=== PATIENT | female | born 1995 | race African-American/Black ===

== ENCOUNTER 2023-11-28 17:05 | Emergency (ER) | payer SELFPAY ==
[~2023-11-28] VITALS: Ht 149.9 cm; Wt 50.9 kg
[2023-11-28] MEDS ORDERED: DOXYCYCLINE HY100 MG PO (18:23)
[2023-11-28] MEDS ORDERED: DIFLUCAN200 MG PO (18:25)
[2023-11-28] MEDS: CEFTRIAXONE 500 MG VIAL IM ONE (18:34)
[2023-11-28 18:45] VITALS: PULSE 93; RESP 16; TEMP 99.1; O2SAT 100
== END 2023-11-28 18:46 | disposition home or self-care (01) ==
LOC: FSED 17:14
DX: B37.31 Acute candidiasis of vulva and vagina (principal); Z20.2 Contact with and (suspected) exposure to infections with a predominantly sexual mode of transmission; R10.30 Lower abdominal pain, unspecified
CPT/HCPCS: 81003; 81025; 96372; 99284; J0696